=== PATIENT | female | born 1990 | race Caucasian/White ===

== ENCOUNTER 2025-01-18 14:41 | Inpatient (IN) | payer OTHER ==
[2025-01-18 15:05] LABS: Appearance,Urine Cloudy (Clear); Bilirubin,Urine Negative (Negative); Blood,Urine Negative (Negative); Color,Urine Yellow; Glucose,Urine (UA) Negative (Negative); Ketones,Urine Negative (Negative); Leukocyte Esterase,Urine Negative (Negative); Nitrite,Urine Negative (Negative); PH, Urine 6.5 (5.0-8.0); Protein,Urine 3+ (Negative); Specific Gravity,Urine 1.033 (1.001-1.035); Urobilinogen,Urine <2.0 mg/dL (<2.0)
[2025-01-18 15:06] LABS: Mucus,Urine Few /hpf; RBC,Urine 3 /hpf (0-5); Squamous Epithelial Cell,Urine 25 /hpf (0-4); WBC,Urine 3 /hpf (0-5)
[2025-01-18 15:10] LABS: Creatinine,Urine Random 213.7 mg/dL
[2025-01-18 15:15] LABS: Basophils # (A) 0.04 10*3/uL (0.00-0.10); Basophils % (A) 0.6 %; Eosinophils # (A) 0.03 10*3/uL (0.04-0.35); Eosinophils % (A) 0.4 %; HGB 14.1 g/dL (12.0-15.0); Lymphocytes # (A) 1.79 10*3/uL (0.90-5.00); Lymphocytes % (A) 25.7 %; MCHC 34.4 g/dL (32.0-37.0); MCV 93.2 fL (80.0-97.0); Mean Platelet Volume 11.6 fL (9.5-12.2); Monocytes # (A) 0.45 10*3/uL (0.20-1.00); Monocytes % (A) 6.5 %; Neutrophils # (A) 4.62 10*3/uL (1.80-7.70); Neutrophils % (A) 66.4 %; Platelet Count 171 10*3/uL (140-440); RDW 12.9 % (11.5-14.5); WBC 6.96 10*3/uL (4.50-10.00)
[2025-01-18 15:34] LABS: ALT <6 U/L (4-34); AST 27 U/L (14-36); Uric Acid 5.5 mg/dL (3.7-7.4)
[2025-01-18 15:51] LABS: Total Protein,Urine Random >600 mg/dL (<12)
[2025-01-18] MEDS: LACTATED RINGERS 1,000 ML IV SCH (16:04)
[2025-01-18 16:23] LABS: INR 0.8 (<1.2); Partial Thromboplastin Time 23.5 sec (22.0-30.0); Prothrombin Time 9.7 sec (10.0-12.5)
[2025-01-18] MEDS: DINOPROSTONE 10 MG INSERT.ER VAGINAL ONE (16:29)
[2025-01-19] MEDS: LACTATED RINGERS 1,000 ML IV SCH (05:30)
[2025-01-19] MEDS ORDERED: CARBOPROST TROMETHAMINE 250 MCG/ML 1 ML AMP IM PRN (05:59)
[2025-01-19] MEDS ORDERED: TERBUTALINE 1 MG/ML VIAL SQ PRN (05:59)
[2025-01-19] MEDS ORDERED: miSOPROStoL 200 MCG TAB RECTAL PRN (05:59)
[2025-01-19] MEDS ORDERED: LIDOCAINE 0.5% (PF) 5 MG/ML (50 ML SDV) SQ PRN (05:59)
[2025-01-19] MEDS ORDERED: miSOPROStoL 200 MCG TAB PO PRN (05:59)
[2025-01-19] MEDS ORDERED: OXYTOCIN 10 UNIT/ML 1 ML VIAL IM PRN (05:59)
[2025-01-19] MEDS ORDERED: METHYLERGONOVINE 0.2 MG/ML 1 ML AMP IM PRN (05:59)
[2025-01-19] MEDS ORDERED: TRANEXAMIC 1,000 MG/100ML-NACL 1,000 MG in EMPTY BAG 1 BAG IV PRN (05:59)
[2025-01-19] MEDS ORDERED: OXYTOCIN 30 UNITS/500 ML NS 30 UNIT in SALINE 1 500ML.BAG IV SCH (06:00)
[2025-01-19] MEDS: BUTORPHANOL 1 MG/ML 1 ML VIAL IV PRN (10:40)
[2025-01-19] MEDS: CALCIUM CARBONATE 500 MG CHEWABLE PO PRN (18:48)
[2025-01-19] MEDS ORDERED: SODIUM CHLORIDE 0.9% 250 ML BAG ONE (20:58)
[2025-01-19] MEDS ORDERED: ROPIVACAINE 5 MG/ML 30 ML VIAL ONE (20:58)
[2025-01-19] MEDS ORDERED: fentaNYL (PF) 50 MCG/ML 5 ML AMP ONE (20:58)
[2025-01-19] MEDS: AMPICILLIN 2,000 MG in SODIUM CHLORIDE 0.9% 100 ML IVPB STA (21:31)
[2025-01-20] MEDS: AMPICILLIN 1,000 MG in SODIUM CHLORIDE 0.9% 50 ML IVPB SCH (01:27)
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
[2025-01-20] MEDS ORDERED: miSOPROStoL 200 MCG TAB PO PRN (11:35)
[2025-01-20] MEDS ORDERED: TRANEXAMIC 1,000 MG/100ML-NACL 1,000 MG in EMPTY BAG 1 BAG IV PRN (11:35)
[2025-01-20] MEDS: CITRIC ACID-SODIUM CITRATE 15 ML CUP PO ONE (11:41)
[2025-01-20] MEDS ORDERED: OXYTOCIN 30 UNITS/500 ML NS BAG IV ONE (11:47)
[2025-01-20] MEDS ORDERED: KETOROLAC 15 MG/ML 1 ML VIAL ONE (11:47)
[2025-01-20] MEDS ORDERED: MORPHINE SULFATE (PF) 0.3 MG/0.3 ML SYR ONE (11:47)
[2025-01-20] MEDS ORDERED: ONDANSETRON 4 MG/2 ML VIAL ONE (11:47)
[2025-01-20] MEDS ORDERED: diphenhydrAMINE 50 MG CAP PO PRN (12:32)
[2025-01-20] MEDS ORDERED: diphenhydrAMINE 50 MG/ML 1 ML VIAL IVP PRN ×2 (12:32)
[2025-01-20] MEDS ORDERED: diphenhydrAMINE 25 MG CAP PO PRN (12:32)
[2025-01-20] MEDS ORDERED: ONDANSETRON 4 MG/2 ML VIAL IVP PRN (12:32)
[2025-01-20] MEDS ORDERED: NALOXONE 0.4 MG/ML 1 ML VIAL IV PRN (12:32)
[2025-01-20] MEDS ORDERED: METOCLOPRAMIDE 5 MG/ML 2 ML VIAL IVP PRN (12:32)
[2025-01-20] MEDS ORDERED: LANOLIN CREAM 1 GM TUBE TOPICAL PRN (12:32)
[2025-01-20] MEDS ORDERED: SIMETHICONE 80 MG CHEWABLE PO PRN (12:32)
[2025-01-20] MEDS ORDERED: ZOLPIDEM 5 MG TAB PO PRN (12:32)
[2025-01-20] MEDS ORDERED: OXYTOCIN 30 UNITS/500 ML NS 30 UNIT in SALINE 1 500ML.BAG IV SCH (12:45)
[2025-01-20] MEDS: LACTATED RINGERS 1,000 ML IV SCH (15:06)
[2025-01-20] MEDS: ACETAMINOPHEN TAB 500 MG TAB PO SCH (16:30)
[2025-01-20] MEDS: Rhogam IMMUNE GLOBULIN 1,500 UNIT/1 ML IM ONE (16:53)
[2025-01-20] MEDS: KETOROLAC 15 MG/ML 1 ML VIAL IVP SCH (20:40)
[2025-01-20] MEDS: SENNOSIDES-DOCUSATE SODIUM 1 EACH TAB PO SCH (20:40)
[2025-01-21 06:32] LABS: Basophils # (A) 0.07 10*3/uL (0.00-0.10); Basophils % (A) 0.6 %; Eosinophils % (A) 0.8 %; HCT 34.8 % (37.2-46.3); HGB 11.7 g/dL (12.0-15.0); Immature Platelet Fraction 7.3 % (1.1-6.1); Lymphocytes # (A) 1.87 10*3/uL (0.90-5.00); Lymphocytes % (A) 15.9 %; MCH 32.2 pg (27.0-32.0); MCHC 33.6 g/dL (32.0-37.0); MCV 95.9 fL (80.0-97.0); Mean Platelet Volume 11.3 fL (9.5-12.2); Monocytes # (A) 0.96 10*3/uL (0.20-1.00); Monocytes % (A) 8.2 %; Neutrophils # (A) 8.69 10*3/uL (1.80-7.70); Neutrophils % (A) 73.8 %; Platelet Count 136 10*3/uL (140-440); RBC 3.63 10*6/uL (4.10-5.20); RDW 13.2 % (11.5-14.5); WBC 11.77 10*3/uL (4.50-10.00)
--- NOTE | 2025-01-21 07:34 | P.PN ---
Progress Note - Text 01/21/25 652am 34-year-old female status post with Duramorph. Patient seen and evaluated for postop pain control, she has a VAS of 1 with no complaints of nausea vomiting or pruritus.
--- NOTE | 2025-01-21 08:45 | P.OP ---
Date of Procedure: 01/20/25 Preoperative Diagnosis: 1. at 39 weeks 4 days 2. pre-eclampsia 3. failed induction 4. arrest of dilation Postoperative Diagnosis: same Procedure(s) Performed: Primary low-transverse Anesthesia: epidural Surgeon: Angie Huitron Emergency Department Coordinator #1: Shirley Troy Estimated Blood Loss (ml): 880 IV fluids (ml): 700 Urine output (ml): 100 Pathology: none sent Condition: stable Disposition: floor Indications for Procedure: 34-year-old G1, P0 presented at 39 weeks and 3 days to my office with elevated blood pressures. She was sent to triage and diagnosed with preeclampsia. Her cervix was closed thick and high. heart tones category 1. Patient had Cervidil induction of labor which was removed after 12 hours and then Pitocin augmentation. She started to progress very slowly and was 6 cm by 11 p.m. on 01/20/2024. She was still 6 to 7 cm at 11:00 the next morning. Patient centered huddle was held with the patient and her family and nursing staff. The decision was made to progress with section for arrest of dilation. Operative Findings: Viable male, Apgars 8, 9, weight 13 ounces. Normal uterus, tubes, ovaries. Description of Procedure: Patient was taken to the operating room where epiduarl was bolused and anesthesia was found be adequate. She was prepped and draped in normal sterile fashion in dorsal supine position with a leftward tilt. Pfannenstiel skin incision was made the scalpel and carried through to the underlying layer of fascia with the scalpel. Fascia was incised in midline and carried bilaterally with the Huffman scissors. The superior aspect of the fascial incision was grasped with Ana Luisa clamps elevated and the underlying rectus muscles dissected off with the Huffman's. Attention was then turned to inferior aspect of same incision which in a similar fashion was grasped tented up and the underlying rectus muscles dissected off with the Huffman's. The rectus muscles were the midline and the peritoneum was identified tented up and entered sharply with the scalpel. The incision was extended superiorly and inferiorly with good visualization of the bladder. The bladder blade was inserted and the vesicouterine peritoneum was incised the Metzenbaums then carried bilaterally and bladder flap created digitally. A low transverse incision was then made on the uterus with the scalpel. This was carried bilaterally and digital manner. Infant's head delivered atraumatically, nose and mouth bulb suctioned, cord clamped and cut, handed off to waiting nurses. Apgars 8,9, weight 8lbs. 13 oz. Placenta delivered manually, intact with three-vessel cord. The uterus is exteriorized and cleared of all clots and debris. The uterine incision was closed with 0 Vicryl in a running locked fashion. Second layer of the same sutures used in imbricating fashion to obtain excellent hemostasis. Both ovaries and tubes appeared normal. The uterus was placed back into the abdomen. The fascia was reapproximated using 0 Vicryl in a running fashion. The subcutaneous tissues closed with 3-0 Vicryl running fashion. The skin was closed master. Patient tolerated the procedure well, sponge and instrument counts were correct times 2 and she was taken to the recovery room in stable condition.
--- NOTE | 2025-01-21 08:47 | P.PNOBGPC ---
Subjective - Subjective Principal diagnosis: Status post primary low-transverse postop day 1 Interval history: Patient seen and examined. Her blood pressures were 140s over 90s. She denies headache or vision changes or any right upper quadrant pain. Denies nausea, vomiting, chest pain, shortness of breath or calf pain. Patient reports: Reports appetite normal, Reports voiding normally, Reports pain well controlled, Reports ambulating normally [place]: doing well Objective - Vital Signs Latest vital signs: Vital Signs Temp Pulse Resp BP Pulse Ox 01/21/25 07:46 98.1 F 98 18 147/91 96 01/21/25 00:00 98.7 F 89 16 149/81 98 01/20/25 20:00 98.5 F 89 18 141/82 97 01/20/25 15:04 98.2 F 90 18 148/76 97 01/20/25 14:35 102 H 18 150/69 98 01/20/25 14:09 94 18 148/83 97 01/20/25 14:05 102 H 18 124/93 98 01/20/25 13:39 93 18 148/83 96 01/20/25 13:24 97 20 145/66 98 01/20/25 13:09 100 20 133/69 97 01/20/25 12:50 100 20 130/63 97 01/20/25 12:35 97.9 F 88 20 119/58 97 Intake and Output 01/20/25 01/21/25 01/21/25 22:59 06:59 14:59 Intake Total 240 240 Output Total 300 950 400 Balance -60 -950 -160 Intake: Oral 240 240 Output: Urine 300 950 400 Uretheral (Druan) 300 Other: # Voids 1 1 - Exam Lungs: bilateral: normal Chest: Normal S1, Normal S2 Extremities: Present: normal Abdomen: Present: normal appearance, soft. Absent: distention, tenderness Incision: Present: normal, dry, intact Uterus: Present: normal, firm - Labs Labs: Abnormal Lab Results - Last 24 Hours (Table) 01/21/25 Range/Units 06:06 WBC 11.77 H (4.50-10.00) 10*3/uL RBC 3.63 L (4.10-5.20) 10*6/uL Hgb 11.7 L (12.0-15.0) g/dL Hct 34.8 L (37.2-46.3) % MCH 32.2 H (27.0-32.0) pg Plt Count 136 L (140-440) 10*3/uL Immature Gran # 0.08 H (0.00-0.04) 10*3/uL Neutrophils # 8.69 H (1.80-7.70) 10*3/uL Immature Plt Fraction 7.3 H (1.1-6.1) % Assessment and Plan (1) 39 weeks gestation of Current Visit: Yes Status: Resolved Code(s): Z3A.39 - 39 WEEKS GESTATION OF SNOMED Code(s): 44593101 (2) Pre-eclampsia Current Visit: Yes Status: Acute Code(s): O14.90 - UNSPECIFIED PRE- ECLAMPSIA, UNSPECIFIED TRIMESTER SNOMED Code(s): 266346090 (3) Status post primary low transverse section Current Visit: Yes Status: Acute Code(s): Z98.891 - HISTORY OF UTERINE SCAR FROM PREVIOUS SURGERY SNOMED Code(s): 954630413 Plan: 1. Increase ambulation 2. Monitor blood pressures closely
[2025-01-21] MEDS: IBUPROFEN 800 MG TAB PO SCH (12:15)
[2025-01-22 00:09] VITALS: RESP 16
[2025-01-22 08:34] VITALS: BP 141/93; PULSE 82; TEMP 98.7
--- NOTE | 2025-01-22 11:23 | P.DS ---
Providers Date of admission: 01/18/25 15:32 Expected date of discharge: 01/22/25 Attending physician: Angie Huitron Primary care physician: Stated None - Discharge Diagnosis(es) (1) Status post section Current Visit: Yes Status: Acute Hospital Course: The patient is a 34-year-old 1 para 0 admitted at 39-3/7 weeks from the office after a normal office visit at which time her blood pressure was found to be elevated and there was protein in her urine. She was sent to labor and delivery where the diagnosis of preeclampsia was made and she was admitted for induction. Her cervix at that time was significantly unfavorable and she had a Cervidil placed for cervical ripening. She made minimal progress overnight but ultimately had spontaneous rupture of membranes and had Pitocin augmentation started. She made progress throughout the day to approximately 6 to [address] that way through the entirety of the next night and was found to have no cervical change the following day at approximately 11 AM. After discussion with the patient, the decision was made to proceed to the operating room for arrest of dilation and descent. She was taken to the operating room where she was delivered by primary low-transverse section of a viable 8 pound 13 ounce baby boy with Apgars of 8 at 1 minute and 9 at 5 minutes. Her and postoperative course was unremarkable with vital signs remaining stable and her temperature was afebrile throughout. Her blood pressure remained stable in the ranges of approximately 140/90 with no intervention and she was deemed stable for discharge on the morning of and postoperative day #2. She was discharged home to follow-up in the office in 2 weeks for an incision check in 6 weeks routinely. Discharge instructions included calling for any significantly increased bleeding or foul-smelling lochia, significantly increased fever or abdominal pain, perineal complaints, breast complaints, incisional complaints, or anything else that concerned her. She was additionally instructed to have nothing in the vagina for at least 6 weeks time to include intercourse and to abstain from any heavy lifting over the same period of time. She was lastly instructed to do no driving until off of all pain medications or 2 weeks time, whichever came first. She understood all of her instructions and agrees to follow-up as noted above. Discharge medications included continued vitamins as well as [id number] analgesic pain medications. She was provided a prescription for tramadol 50 mg, 1-2 p.o. every 6 hours as needed pain, #20 dispensed with no refills. Maternal blood type is O- and rubella status is immune. Discharge hemoglobin and hematocrit were 11.7 and 34.8 respectively. Procedures: #1. Cervidil cervical ripening #2. Pitocin augmentation #3. Epidural analgesia #4. Primary low-transverse section Patient Condition at Discharge: Stable Plan - Discharge Summary New Discharge Prescriptions: No Action Acetaminophen Tab [Tylenol Tab] 1,000 mg PO Q6HR PRN PRN Reason: Pain Vit No.179/Iron/Folic [ Tablet] 1 each PO DAILY Aspirin 81 mg PO DAILY Discharge Medication List Acetaminophen Tab [Tylenol Tab] 1,000 mg PO Q6HR PRN 01/18/25 [History] Aspirin 81 mg PO DAILY 01/18/25 [History] Vit No.179/Iron/Folic [ Tablet] 1 each PO DAILY 01/18/25 [History] Follow up Appointment(s)/Referral(s): Angie Huitron DO [Doctor of Osteopathic Medicine] - 03/04/25 11:45 am Discharge Disposition: HOME SELF-CARE
== END 2025-01-22 13:40 | disposition home or self-care (01) | DRG 540 ==
LOC: FBPOP 14:41 → 4FBP 15:32
PROVIDERS: ADMIT Obstetrics & Gynecology; ATTEND Obstetrics & Gynecology
PROC: 3E033VJ Introduction of Other Hormone into Peripheral Vein, Percutaneous Approach (ICD-10-PCS; 2025-01-20)
PROC: 3E0P7VZ Introduction of Hormone into Female Reproductive, Via Natural or Artificial Opening (ICD-10-PCS; 2025-01-20)
PROC: 10D00Z1 Extraction of Products of Conception, Low, Open Approach (ICD-10-PCS; principal; 2025-01-20 12:03)
DX: O14.94 Unspecified pre-eclampsia, complicating childbirth (principal); O61.0 Failed medical induction of labor; O62.1 Secondary uterine inertia; Z37.0 Single live birth; Z3A.39 39 weeks gestation of pregnancy; Z79.82 Long term (current) use of aspirin
CPT/HCPCS: 59025; 81001; 82570; 84156; 84450; 84460; 84550; 85025; 85610; 85730; 86850; 86900; 86901